=== PATIENT | male | born 1940 | race Two or more races ===

== ENCOUNTER → 2025-02-14 | Outpatient (CLI) | payer OTHER ==
[~2025-02-14] VITALS: Ht 30.5 cm; Wt 5.0 kg
[~2025-02-14] MED LIST: COZAAR50 MG PO; HYDRODIURIL12.5 MG PO; LEVOTHYROXINE25 MCG PO; TOPROL XL50 M1 PO
[2025-02-14 11:11] VITALS: BP 140/80
== END | disposition home or self-care (01) ==
LOC: EKG 08:00 → SURG 02-22 11:45 → EDSTATUS 02-22 11:45 → SURG 02-22 22:00
PROVIDERS: ATTEND Colon & Rectal Surgery
DX: D12.0 Benign neoplasm of cecum (principal); C18.0 Malignant neoplasm of cecum; Z86.0100 Personal history of colon polyps, unspecified; I10 Essential (primary) hypertension

== ENCOUNTER 2025-03-08 07:19 | Outpatient (CLI) | payer OTHER | END 2025-03-08 07:24 | disposition home or self-care (01) | LOC: NUCLEAR 07:19 | PROVIDERS: ATTEND Internal Medicine | DX: I20.9 Angina pectoris, unspecified (principal) | CPT/HCPCS: 78452; 93017; A9500; J0153 ==

== ENCOUNTER 2025-05-24 08:00 | Outpatient (CLI) | payer OTHER ==
[~2025-05-24] VITALS: Ht 30.5 cm; Wt 5.0 kg
== END 2025-05-24 08:05 | disposition home or self-care (01) ==
LOC: EKG 08:00 → SURH 06-01 09:30 → EDSTATUS 06-01 09:45 → SURH 06-01 09:45
PROVIDERS: ATTEND Colon & Rectal Surgery
DX: D12.0 Benign neoplasm of cecum (principal); C18.0 Malignant neoplasm of cecum; Z86.0100 Personal history of colon polyps, unspecified; I10 Essential (primary) hypertension